=== PATIENT | male | born 1990 | race Caucasian/White ===

== ENCOUNTER 2023-03-05 10:03 | Outpatient (CLI) | payer OTHER ==
--- NOTE | 2023-03-05 13:31 | XRAY Report ---
PROCEDURE: Finger(s) RT INDICATIONS: FINGER PX, RIGHT TECHNIQUE: AP hand, 2 views of the third finger(s) acquired. COMPARISON: None. FINDINGS: Bones: Minimally displaced tuft fracture of the third phalanx. Soft tissues: No suspicious soft tissue calcifications or masses. IMPRESSION: Minimally displaced tuft fracture of the third phalanx. Reviewed by: Jorge Walden on 03/05/2023 1:29 PM PDT Approved by: Jorge Walden on 03/05/2023 1:29 PM PDT Station ID: [id number]
== END 2023-03-05 10:04 | disposition home or self-care (01) ==
LOC: DI 10:03
PROVIDERS: ATTEND Family Medicine
DX: S62.632A Displaced fracture of distal phalanx of right middle finger, initial encounter for closed fracture (principal)

== ENCOUNTER 2023-08-01 12:26 | Outpatient (CLI) | payer OTHER ==
--- NOTE | 2023-08-03 09:09 | MRI Report ---
PROCEDURE: SHOULDER WO - RT INDICATIONS: BILATERAL SHOULDER PAIN TECHNIQUE: Noncontrast oblique coronal T2 fast spin echo with fat saturation, oblique sagittal T1 spin echo and T2 fast spin echo with fat saturation, axial T1 spin echo and T2 fast spin echo with fat saturation t hrough the shoulder. COMPARISON: None. FINDINGS: Image quality: Excellent. Rotator cuff: Low-grade partial thickness tear of the supraspinatus tendon and superior fibers of inf raspinatus tendon involving the articular surface. There is moderate subscapularis tendinosis without significant tendon tear. No rotator cuff muscle atrophy on sagittal images. Bones and bursae: No bone marrow contusions or fractures. Mild acromioclavicular and glenohumeral laurie int degeneration. The acromion demonstrates conventional anatomy, without an os acromiale. No patho logic subacromial/subdeltoid bursal fluid is present. Capsule and soft tissues: In the absence of intra-articular contrast, the labrum and glenohumeral li gaments appear intact. The long head of the biceps tendon demonstrates normal location and morpholog y. The rotator interval appears normal, without fibrosis. The coracohumeral ligament is normal in t hickness. IMPRESSION: 1. Low-grade partial thickness tear of the supraspinatus and infraspinatus tendons. 2. Moderate tendinosis of the subscapularis tendon. 3. No rotator cuff muscle atrophy. 4. Mild acromioclavicular and glenohumeral joint degeneration. Reviewed by: Lanie Aquino MD on 08/03/2023 9:08 AM [facility] [place] Approved by: Lanie Aquino MD on 08/03/2023 9:08 AM PST Station ID: [id number]
--- NOTE | 2023-08-03 14:29 | MRI Report ---
PROCEDURE: SHOULDER WO - LT INDICATIONS: BILATERAL SHOULDER PAIN TECHNIQUE: Noncontrast oblique coronal T2 fast spin echo with fat saturation, oblique sagittal T1 spin echo and T2 fast spin echo with fat saturation, axial T1 spin echo and T2 fast spin echo with fat saturation t hrough the shoulder. COMPARISON: None. FINDINGS: Image quality: Excellent. Rotator cuff: There is mild supraspinatus, infraspinatus and subscapularis tendons tendinosis. Ther e is low-grade partial-thickness interstitial and bursal surface tear of the distal supraspinatus ten don. Low-grade partial-thickness tear of the infraspinatus tendon is also present involving the footp rint. No rotator cuff muscle atrophy. Bones and bursae: No bone marrow contusions or fractures. Mild acromioclavicular and glenohumeral laurie int degeneration. The acromion demonstrates conventional anatomy, without an os acromiale. There is small subacromial/subdeltoid bursal fluid suggesting mild bursitis. Capsule and soft tissues: In the absence of intra-articular contrast, the labrum and glenohumeral li gaments appear intact. The long head of the biceps tendon demonstrates normal location and morpholog y. The rotator interval appears normal, without fibrosis. The coracohumeral ligament is normal in t hickness. IMPRESSION: 1.. Mild supraspinous, infraspinatus and subscapular tendinosis. No high-grade tendon tear. No recurr ent cuff muscle atrophy. 2. 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 3. Small subacromial/subdeltoid bursal fluid, suggesting mild bursitis. Reviewed by: Lanie Aquino MD on 08/03/2023 2:27 PM PST Approved by: Lanie Aquino MD on 08/03/2023 2:27 PM PST Station ID: [id number]
== END 2023-08-01 12:27 | disposition home or self-care (01) ==
LOC: DI 12:26
PROVIDERS: ATTEND Nurse Practitioner Family
DX: M19.012 Primary osteoarthritis, left shoulder (principal); M67.814 Other specified disorders of tendon, left shoulder; M75.111 Incomplete rotator cuff tear or rupture of right shoulder, not specified as traumatic; M75.81 Other shoulder lesions, right shoulder; M19.011 Primary osteoarthritis, right shoulder

== ENCOUNTER 2024-03-10 10:45 | Outpatient (CLI) | payer OTHER ==
--- NOTE | 2024-03-10 20:42 | XRAY Report ---
PROCEDURE: Tib/Fib RT INDICATIONS: PAIN IN RIGHT LOWER LEG TECHNIQUE: 2 views of the tibia and fibula were acquired. COMPARISON: None. FINDINGS: Bones: No acute fractures or dislocations. No suspicious bony lesions. Soft tissues: No suspicious soft tissue calcifications. Mild edema is seen overlying the lateral mal leolus. IMPRESSION: Mild soft tissue edema over the lateral malleolus. No acute osseous abnormality. If there is clinical concern or persistent symptoms, additional imaging such as repeat radiographs or advanced imaging (e .g. CT, MRI) may be helpful for further evaluation. Reviewed by: Carlos Salomon MD on 03/10/2024 8:41 PM PDT Approved by: Carlos Salomon MD on 03/10/2024 8:41 PM PDT Station ID: [id number]
--- NOTE | 2024-03-10 20:43 | XRAY Report ---
PROCEDURE: Ankle 3+V RT INDICATIONS: ANKLE PAIN, RIGHT TECHNIQUE: 3 views of the ankle were acquired. COMPARISON: None. FINDINGS: Bones: No acute fractures or dislocations. Ankle mortise is normally aligned. No suspicious bony l esions. Soft tissues: Mild soft tissue edema over the lateral malleolus. IMPRESSION: Mild soft tissue edema over lateral malleolus. No acute osseous abnormality. If there is clinical con cern or persistent symptoms, additional imaging such as repeat radiographs or advanced imaging (e.g. CT, MRI) may be helpful for further evaluation. Reviewed by: Carlos Salomon MD on 03/10/2024 8:42 PM PDT Approved by: Carlos Salomon MD on 03/10/2024 8:42 PM PDT Station ID: [id number]
== END 2024-03-10 11:00 | disposition home or self-care (01) ==
LOC: DI.N 10:45
PROVIDERS: ATTEND Physician Assistant Medical
DX: R60.0 Localized edema (principal); M25.571 Pain in right ankle and joints of right foot; M79.661 Pain in right lower leg